=== PATIENT | female | born 1950 | race Caucasian/White ===

== ENCOUNTER → 2016-08-09 | Outpatient (CLI) | payer BC ==
[~2016-08-09] MED LIST: AVANDAMET 4 MG/1 TA1 PO; CINNAMON 500 MG; DIOVAN HCT 320/1 TA1 PO; DITROPAN XL PO; FISH OIL 1,0001 CAP PO; LEVOTHROID100 MC1 PO; NATEGLINIDE120 MG PO; NITROFURANTOIN100 M3 PO; OYSTER SHELL C500 MG PO; SIMVASTATIN40 MG PO; VITAMIN E200 UNI1 PO
--- NOTE | ~2016-08-09 | MY29 ---
[facility] A Service of [facility] RADIOLOGY TEXT RESULTS PATIENT: MASOUD BANSAL LOCATION: [facility] : 52 UNIT #: [id number] AGE: [address]: ASTRID RICKETTS MD SEX: F ORDER DR: [id number] [facility] [address] [place], [place] [address] [id number] O MR#: [id number] Acc #: [id number] NAME: MASUOD BANSAL : 1950 SEX: F STUDY DATE/TIME: 08/09/2016 15:08 UNIT: [facility] ROOM: STUDY DESCRIPTION: MY LEIGH SCREENING W/ CAD BILAT Attending Physician: Astrid Ricketts M.D. Referring Physician: Astrid Ricketts M.D. Ordering Physician: Astrid Ricketts M.D. Primary Care Physician: Astrid Ricketts M.D. MEDICAL IMAGING REPORT This report is preliminary unless electronic signature is present EXAM Digital screening mammogram, 08/09/2016, [facility]. HISTORY 66-year-old woman, no risk elevation. Annual screen. COMPARISON 10/22/2008, 11/23/2014 TECHNIQUE Digital imaging of each breast was completed utilizing screening protocol. Review includes FDA-approved CAD device. FINDINGS Breast parenchyma is predominantly fatty replaced. I see no interval occurring mass. There are no suspicious microcalcifications and no architectural deformity. IMPRESSION Negative mammogram. Annual screening recommended. Patients over the age of 40 are entered into a reminder system with target due date for the next mammogram. A result letter will also be sent to the patient. BIRADS: 1 Negative Dictated by... Sher Arevalo M.D. THIS IS AN ELECTRONICALLY VERIFIED REPORT [facility] A Service of [facility] RADIOLOGY TEXT RESULTS PATIENT: MASOUD BANSAL LOCATION: [facility] : 52 UNIT #: [id number] AGE: [address]: ASTRID RICKETTS MD SEX: F ORDER DR: Sher Arevalo M.D. at 08/10/2016 8:02 AM MALIK/ed TD: 08/09/2016 16:38 JOB #: [id number] MEDICAL IMAGING REPORT Page 1 of 1 COPY
== END | disposition home or self-care (01) ==
LOC: CWCC 14:30
DX: Z12.31 Encounter for screening mammogram for malignant neoplasm of breast (principal)
CPT/HCPCS: G0202